=== PATIENT | female | born 1930 | race Caucasian/White ===

== ENCOUNTER 2018-01-15 07:01 | Emergency (ER) | payer MEDICARE, MEDICAID ==
[2018-01-15] MEDS ORDERED: Albuterol/Ipratropium 3.0-0.5 MG/3 ML Neb Soln NEB ONE (07:04)
[2018-01-15] MEDS ORDERED: Sodium Chloride 0.9% 10 ML Syringe FLUSH PRN (07:04)
--- NOTE | 2018-01-15 07:04 | EDM.PDOC ---
ED HPI GENERAL MEDICAL PROBLEM - General Chief Complaint: Respiratory Problem Stated Complaint: SOB AND HARD TO WAKE AMBULANCE Time Seen by Provider: 01/15/18 07:01 Source of Information: Reports: EMS, Family, Old Records, RN, RN Notes Reviewed History Limitations: Reports: Respiratory Distress - History of Present Illness INITIAL COMMENTS - FREE TEXT/NARRATIVE: Arrives by ambulance with report that pt's son could not wake her up this morning. Son reports pt got sick with cough and sore throat on or about January 07 , and slowly worsened since then. She called the clinic and they called in a Z- Chris a few days ago. This morning the pt's son was unable to wake her, and called 911. EMS reports that found the pt in resp. distress with O2 sats in 70' s. Pt is unable to provide any Hx. Pt's son states he wants to her to have "full medical treatment", but no intubation or life support. Onset: Gradual Duration: Constant, Getting Worse Location: Reports: Generalized Severity: Severe Improves with: Reports: None Worsens with: Reports: None Associated Symptoms: Reports: No Other Symptoms Treatments GRIEF COUNSELOR: Reports: Oxygen - Related Data Allergies Allergy/AdvReac Type Severity Reaction Status Date / Time No Known Allergies Allergy Verified 01/15/18 07:25 Home Meds: Home Meds Azithromycin [Zithromax] 250 mg PO DAILY 01/15/18 [History] Clorazepate Dipotassium [Tranxene T-Tab] 7.5 mg PO DAILY 01/15/18 [History] Gemfibrozil 600 mg PO DAILY 01/15/18 [History] Oxybutynin Chloride [Ditropan Xl] 10 mg PO DAILY 01/15/18 [History] Phenytoin 100 mg PO BID 01/15/18 [History] Valsartan 320 mg PO DAILY 01/15/18 [History] Past Medical History Neurological History: Reports: Seizure Endocrine/Metabolic History: Reports: Obesity/BMI 30+, Other (See Below) ( borderline DM) Social & Family History - Family History Family Medical History: Unobtainable - Tobacco Use Smoking Status *Q: Former Smoker Tobacco Use Within Last Twelve Months: Cigarettes - Alcohol Use Alcohol Use History: No - Living Situation & Occupation Living situation: Reports: , with Family (lives with son, in half-way) Occupation: Retired ED ROS GENERAL - Review of Systems Review Of Systems: Unable To Obtain ED EXAM, GENERAL - Physical Exam Exam: See Below Exam Limited By: Respiratory Distress General Appearance: Obtunded, Obese, Other (critically ill and toxic appearing) Eye Exam: Bilateral Eye: PERRL Nose: Normal Inspection, Normal Mucosa, No Blood Throat/Mouth: No Airway Compromise, Other (dry oral membranes) Head: Atraumatic, Normocephalic Neck: Normal Inspection Respiratory/Chest: Respiratory Distress, Decreased Breath Sounds, Crackles, Rales, Rhonchi (Rt lung field), Accessory Muscle Use, Other (tachypnic) Cardiovascular: Regular Rate, Rhythm, Tachycardia, Other (trace pedal edema) GI/Abdominal: Soft, Non-Tender, No Distention, Abnormal Bowel Sounds (hypoactive ). No: Guarding, Rigid, Rebound (Female) Exam: Normal External Exam Rectal (Female) Exam: Deferred Extremities: Pedal Edema (trace), Slow Capillary Refill Neurological: Confused, Disoriented Skin Exam: Warm, Dry, Pallor EKG INTERPRETATION EKG Date: 01/15/18 Time: 07:00 Rhythm: Other (SR) Rate (Beats/Min): 109 Riddle: Normal P-Wave: Present QRS: RBBB ST-T: Other (T-wave inversion V1-V4) QT: Normal Comparison: NA - No Prior EKG Course - Vital Signs Last Recorded V/S: Last Vital Signs Temp 35.7 C 01/15/18 07:00 Pulse 120 H 01/15/18 07:00 Resp 38 H 01/15/18 07:00 BP 121/53 L 01/15/18 07:00 Pulse Ox 74 L 01/15/18 07:00 - Orders/Labs/Meds Orders: Active Orders 24 hr Category Date Time Status BIPAP [RT BiPAP/CPAP] [RC] ASDIRECTED Care 01/15/18 08:22 Active Blood Glucose Check, Bedside [RC] ONETIME Care 01/15/18 07:05 Active EKG 12 Lead [EKG Documentation Completion] [RC] STAT Care 01/15/18 07:04 Active Peripheral IV Care [RC] . DIRECTED Care 01/15/18 07:05 Active RT Aerosol Therapy [RC] ASDIRECTED Care 01/15/18 07:04 Active RT Aerosol Therapy [RC] ASDIRECTED Care 01/15/18 07:24 Active Chest 1V Frontal [CR] Stat Exams 01/15/18 07:04 Taken CULTURE BLOOD [BC] Stat Lab 01/15/18 07:15 Received CULTURE BLOOD [BC] Stat Lab 01/15/18 07:19 Results DRUG SCREEN URINE BIORAD [URCHEM] Stat Lab 01/15/18 07:28 Ordered UA W/MICROSCOPIC [URIN] Stat Lab 01/15/18 07:28 Ordered Levofloxacin/Dextrose 5%-Water [Levaquin in D5W 750 MG/ Med 01/15/18 07:24 Active 150 ML] 750 mg Premix Bag 1 bag IV ONETIME Sodium Chloride 0.9% [Saline Flush] Med 01/15/18 07:04 Active 10 ml FLUSH ASDIRECTED PRN Blood Culture x2 Reflex Set [OM.PC] Stat Oth 01/15/18 07:05 Ordered Peripheral IV Insertion Adult [OM.PC] Stat Oth 01/15/18 07:04 Ordered Medication Orders Levofloxacin/Dextrose 750 mg/ (Premix) 150 mls @ 100 mls/hr IV ONETIME ONE Stop: 01/15/18 08:53 Last Admin: 01/15/18 07:41 Dose: 100 mls/hr Sodium Chloride (Saline Flush) 10 ml FLUSH ASDIRECTED PRN PRN Reason: Keep Vein Open Last Admin: 01/15/18 07:41 Dose: 10 ml Labs: Laboratory Tests 01/15/18 01/15/18 01/15/18 Range/Units 07:03 07:03 07:03 WBC 15.7 H (5.0-10.0) 10^3/uL RBC 3.74 L (4.2-5.4) 10^6/uL Hgb 11.1 L (12.0-16.0) g/dL Hct 35.9 L (37.0-47.0) % MCV 96.0 (80-100) fL MCH 29.7 (27.0-34.0) pg MCHC 30.9 L (33.0-35.0) g/dL Plt Count 439 (150-450) 10^3/uL Neut % (Auto) 75.5 H (42.2-75.2) % Lymph % (Auto) 15.6 L (20.5-50.1) % [place] % (Auto) 8.7 H (2-8) % Eos % (Auto) 0.1 L (1.0-3.0) % Baso % (Auto) 0.1 (0.0-1.0) % Add Manual Diff Yes Neutrophils % (Manual) 67 (42-75) % Band Neutrophils % 8 % Lymphocytes % (Manual) 12 L (20-50) % Atypical Lymphs % 2 % Monocytes % (Manual) 8 (2-8) % Metamyelocytes % 3 PT 15.8 H (9.0-12.0) SEC INR 1.6 H (0.9-1.2) APTT 26.3 (22.0-34.0) SEC ABG pH (7.35-7.45) ABG pCO2 (35-45) mmHg ABG pO2 (70-100) mmHg ABG HCO3 (22-26) mmol/L ABG O2 Saturation (95-100) % ABG Base Excess ((-2)-(+3)) mmol/L O2 Delivery Device Oxygen Flow Rate Sodium 140 (135-145) mmol/L Potassium 4.7 (3.6-5.0) mmol/L Chloride 100 L (101-111) mmol/L Carbon Dioxide 23.0 (21.0-31.0) mmol/L Anion Gap 21.7 BUN 64 H (7-18) mg/dL Creatinine 2.7 H (0.6-1.3) mg/dL Est Cr Clr Drug Dosing 14.01 mL/min Estimated GFR (MDRD) 17 BUN/Creatinine Ratio 23.70 Glucose 147 H (74-105) mg/dL Lactic Acid (0.5-2.2) mmol/L Calcium 8.6 (8.4-10.2) mg/dl Total Bilirubin 1.0 (0.2-1.0) mg/dL AST 64 H (10-42) IU/L ALT 22 (10-60) IU/L Alkaline Phosphatase 89 (42-121) IU/L Troponin I 0.36 H* (0.00-0.02) ng/ml B-Natriuretic Peptide 4360 H (0-100) pg/ml Total Protein 7.6 (6.7-8.2) g/dl Albumin 3.0 L (3.2-5.5) g/dl Globulin 4.6 Albumin/Globulin Ratio 0.65 Urine Color (YELLOW) Urine Appearance (CLEAR) Urine pH (5.0-9.0) Ur Specific [place] (1.005-1.030) Urine Protein (NEGATIVE) Urine Glucose (UA) (NEGATIVE) Urine Ketones (NEGATIVE) Urine Occult Blood (NEGATIVE) Urine Nitrite (NEGATIVE) Urine Bilirubin (NEGATIVE) Urine Urobilinogen (0.2-1.0) mg/dL Ur Leukocyte Esterase (NEGATIVE) Urine RBC /HPF Urine WBC (0-5/HPF) /HPF Ur Epithelial Cells /HPF Amorphous Sediment (0/HPF) /HPF Urine Bacteria (0-FEW/HPF) /HPF Hyaline Casts /LPF Urine Opiates Screen (NEGATIVE) Ur Oxycodone Screen (NEGATIVE) Urine Methadone Screen (NEGATIVE) Ur Barbiturates Screen (NEGATIVE) U Tricyclic Antidepress (NEGATIVE) Ur Phencyclidine Scrn (NEGATIVE) Ur Amphetamine Screen (NEGATIVE) U Methamphetamines Scrn (NEGATIVE) Urine MDMA Screen (NEGATIVE) U Benzodiazepines Scrn (NEGATIVE) Urine Cocaine Screen (NEGATIVE) U Marijuana (THC) Screen (NEGATIVE) 01/15/18 01/15/18 01/15/18 Range/Units 07:03 07:25 07:28 WBC (5.0-10.0) 10^3/uL RBC (4.2-5.4) 10^6/uL Hgb (12.0-16.0) g/dL Hct (37.0-47.0) % MCV (80-100) fL MCH (27.0-34.0) pg MCHC (33.0-35.0) g/dL Plt Count (150-450) 10^3/uL Neut % (Auto) (42.2-75.2) % Lymph % (Auto) (20.5-50.1) % [place] % (Auto) (2-8) % Eos % (Auto) (1.0-3.0) % Baso % (Auto) (0.0-1.0) % Add Manual Diff Neutrophils % (Manual) (42-75) % Band Neutrophils % % Lymphocytes % (Manual) (20-50) % Atypical Lymphs % % Monocytes % (Manual) (2-8) % Metamyelocytes % PT (9.0-12.0) SEC INR (0.9-1.2) APTT (22.0-34.0) SEC ABG pH 7.01 L* (7.35-7.45) ABG pCO2 106 H* (35-45) mmHg ABG pO2 170 H (70-100) mmHg ABG HCO3 25.5 (22-26) mmol/L ABG O2 Saturation 99 (95-100) % ABG Base Excess -8 L ((-2)-(+3)) mmol/L O2 Delivery Device Non rebr mask Oxygen Flow Rate 15 Sodium (135-145) mmol/L Potassium (3.6-5.0) mmol/L Chloride (101-111) mmol/L Carbon Dioxide (21.0-31.0) mmol/L Anion Gap BUN (7-18) mg/dL Creatinine (0.6-1.3) mg/dL Est Cr Clr Drug Dosing mL/min Estimated GFR (MDRD) BUN/Creatinine Ratio Glucose (74-105) mg/dL Lactic Acid 7.2 H (0.5-2.2) mmol/L Calcium (8.4-10.2) mg/dl Total Bilirubin (0.2-1.0) mg/dL AST (10-42) IU/L ALT (10-60) IU/L Alkaline Phosphatase (42-121) IU/L Troponin I (0.00-0.02) ng/ml B-Natriuretic Peptide (0-100) pg/ml Total Protein (6.7-8.2) g/dl Albumin (3.2-5.5) g/dl Globulin Albumin/Globulin Ratio Urine Color Dark yellow (YELLOW) Urine Appearance Slightly cloudy (CLEAR) Urine pH 5.0 (5.0-9.0) Ur Specific [place] 1.025 (1.005-1.030) Urine Protein 100 H (NEGATIVE) Urine Glucose (UA) Negative (NEGATIVE) Urine Ketones Trace H (NEGATIVE) Urine Occult Blood Negative (NEGATIVE) Urine Nitrite Negative (NEGATIVE) Urine Bilirubin Small H (NEGATIVE) Urine Urobilinogen 2.0 H (0.2-1.0) mg/dL Ur Leukocyte Esterase Negative (NEGATIVE) Urine RBC 0-5 /HPF Urine WBC 0-5 (0-5/HPF) /HPF Ur Epithelial Cells Many H /HPF Amorphous Sediment Many H (0/HPF) /HPF Urine Bacteria Moderate H (0-FEW/HPF) /HPF Hyaline Casts Many H /LPF Urine Opiates Screen (NEGATIVE) Ur Oxycodone Screen (NEGATIVE) Urine Methadone Screen (NEGATIVE) Ur Barbiturates Screen (NEGATIVE) U Tricyclic Antidepress (NEGATIVE) Ur Phencyclidine Scrn (NEGATIVE) Ur Amphetamine Screen (NEGATIVE) U Methamphetamines Scrn (NEGATIVE) Urine MDMA Screen (NEGATIVE) U Benzodiazepines Scrn (NEGATIVE) Urine Cocaine Screen (NEGATIVE) U Marijuana (THC) Screen (NEGATIVE) 01/15/18 Range/Units 07:28 WBC (5.0-10.0) 10^3/uL RBC (4.2-5.4) 10^6/uL Hgb (12.0-16.0) g/dL Hct (37.0-47.0) % MCV (80-100) fL MCH (27.0-34.0) pg MCHC (33.0-35.0) g/dL Plt Count (150-450) 10^3/uL Neut % (Auto) (42.2-75.2) % Lymph % (Auto) (20.5-50.1) % [place] % (Auto) (2-8) % Eos % (Auto) (1.0-3.0) % Baso % (Auto) (0.0-1.0) % Add Manual Diff Neutrophils % (Manual) (42-75) % Band Neutrophils % % Lymphocytes % (Manual) (20-50) % Atypical Lymphs % % Monocytes % (Manual) (2-8) % Metamyelocytes % PT (9.0-12.0) SEC INR (0.9-1.2) APTT (22.0-34.0) SEC ABG pH (7.35-7.45) ABG pCO2 (35-45) mmHg ABG pO2 (70-100) mmHg ABG HCO3 (22-26) mmol/L ABG O2 Saturation (95-100) % ABG Base Excess ((-2)-(+3)) mmol/L O2 Delivery Device Oxygen Flow Rate Sodium (135-145) mmol/L Potassium (3.6-5.0) mmol/L Chloride (101-111) mmol/L Carbon Dioxide (21.0-31.0) mmol/L Anion Gap BUN (7-18) mg/dL Creatinine (0.6-1.3) mg/dL Est Cr Clr Drug Dosing mL/min Estimated GFR (MDRD) BUN/Creatinine Ratio Glucose (74-105) mg/dL Lactic Acid (0.5-2.2) mmol/L Calcium (8.4-10.2) mg/dl Total Bilirubin (0.2-1.0) mg/dL AST (10-42) IU/L ALT (10-60) IU/L Alkaline Phosphatase (42-121) IU/L Troponin I (0.00-0.02) ng/ml B-Natriuretic Peptide (0-100) pg/ml Total Protein (6.7-8.2) g/dl Albumin (3.2-5.5) g/dl Globulin Albumin/Globulin Ratio Urine Color (YELLOW) Urine Appearance (CLEAR) Urine pH (5.0-9.0) Ur Specific [place] (1.005-1.030) Urine Protein (NEGATIVE) Urine Glucose (UA) (NEGATIVE) Urine Ketones (NEGATIVE) Urine Occult Blood (NEGATIVE) Urine Nitrite (NEGATIVE) Urine Bilirubin (NEGATIVE) Urine Urobilinogen (0.2-1.0) mg/dL Ur Leukocyte Esterase (NEGATIVE) Urine RBC /HPF Urine WBC (0-5/HPF) /HPF Ur Epithelial Cells /HPF Amorphous Sediment (0/HPF) /HPF Urine Bacteria (0-FEW/HPF) /HPF Hyaline Casts /LPF Urine Opiates Screen Negative (NEGATIVE) Ur Oxycodone Screen Negative (NEGATIVE) Urine Methadone Screen Negative (NEGATIVE) Ur Barbiturates Screen Positive H (NEGATIVE) U Tricyclic Antidepress Negative (NEGATIVE) Ur Phencyclidine Scrn Negative (NEGATIVE) Ur Amphetamine Screen Negative (NEGATIVE) U Methamphetamines Scrn Negative (NEGATIVE) Urine MDMA Screen Negative (NEGATIVE) U Benzodiazepines Scrn Positive H (NEGATIVE) Urine Cocaine Screen Negative (NEGATIVE) U Marijuana (THC) Screen Negative (NEGATIVE) Meds: Medications Generic Name Dose Route Start Last Admin Trade Name Freq PRN Reason Stop Dose Admin Levofloxacin/Dextrose 750 mg/ 150 mls @ 100 mls/hr 01/15/18 07:24 01/15/18 07 :41 Premix IV 01/15/18 08:53 100 mls/hr ONETIME ONE Administration Sodium Chloride 10 ml 01/15/18 07:04 01/15/18 07:41 Saline Flush FLUSH 10 ml ASDIRECTED PRN Administration Keep Vein Open Discontinued Medications Generic Name Dose Route Start Last Admin Trade Name Deshawn PRN Reason Stop Dose Admin Albuterol 10 mg 01/15/18 07:23 01/15/18 07:41 Proventil Neb Soln NEB 01/15/18 07:24 10 mg ONETIME ONE Administration Albuterol/Ipratropium 3 ml 01/15/18 07:04 01/15/18 07:10 Duoneb 3.0-0.5 Mg/3 Ml NEB 01/15/18 07:05 3 ml ONETIME ONE Administration Furosemide 20 mg 01/15/18 07:50 Lasix IVPUSH 01/15/18 07:51 NOW ONE Furosemide 40 mg 01/15/18 07:51 01/15/18 07:57 Lasix IVPUSH 01/15/18 07:52 40 mg NOW ONE Administration Sodium Chloride 1,000 mls @ 999 mls/hr 01/15/18 07:23 01/15/18 07:42 Normal Saline IV 01/15/18 08:23 999 mls/hr .BOLUS ONE Administration Lorazepam 1 mg 01/15/18 07:24 Ativan IVPUSH 01/15/18 07:25 ONETIME ONE Methylprednisolone Sodium Succinate 125 mg 01/15/18 07:23 01/15/18 07:42 Solu-Medrol IVPUSH 01/15/18 07:24 125 mg ONETIME ONE Administration - Radiology Interpretation Free Text/Narrative:: CXR: Rt middle lobe infiltrate, see Rad. report. - Re-Assessments/Exams Free Text/Narrative Re-Assessment/Exam: 01/15/18 08:00 Critically ill pt with poor prognosis. Discussed with pt's son, he wishes for pt to have full medical treatment but no intubation or life support. Pt's son wanted to have the pt admitted here for antibiotics and breathing treatments with the understanding that she is gravely ill. I asked Dr. Garcia to admit the pt, but he felt strongly that the should be transferred. After discussion with Dr. Garcia pt's son changed his mind and decided to transfer the pt to [facility] in . I explained to the son that the pt may not survive the transfer, but he wishes to proceed. Departure - Departure Time of Disposition: 08:35 Disposition: DC/Tfer to Acute Hospital 02 Condition: Critical Clinical Impression: Non-ST elevated myocardial infarction (non-STEMI), Acute kidney injury ( nontraumatic) Pneumonia Qualifiers: Pneumonia type: due to unspecified organism Laterality: right Lung location: middle lobe of lung Qualified Code(s): J18.1 - Lobar pneumonia, unspecified organism Sepsis Qualifiers: Sepsis type: sepsis due to unspecified organism Qualified Code(s): A41.9 - Sepsis, unspecified organism Acute CHF (congestive heart failure) Qualifiers: Heart failure type: unspecified Qualified Code(s): I50.9 - Heart failure, unspecified Acute respiratory failure Qualifiers: Respiratory failure complication: hypoxia and hypercapnia Qualified Code(s): J96.01 - Acute respiratory failure with hypoxia; J96.02 - Acute respiratory failure with hypercapnia - Discharge Information Referrals: Jasmeet Loza MD [Primary Care Provider] - Forms: ED Department Discharge, Interfacility Transfer EMTALA - My Orders Last 24 Hours: My Active Orders 01/15/18 07:04 EKG 12 Lead [EKG Documentation Completion] [RC] STAT RT Aerosol Therapy [RC] ASDIRECTED Chest 1V Frontal [CR] Stat Sodium Chloride 0.9% [Saline Flush] 10 ml FLUSH ASDIRECTED PRN Peripheral IV Insertion Adult [OM.PC] Stat 01/15/18 07:05 Blood Glucose Check, Bedside [RC] ONETIME Peripheral IV Care [RC] . DIRECTED Blood Culture x2 Reflex Set [OM.PC] Stat 01/15/18 07:15 CULTURE BLOOD [BC] Stat 01/15/18 07:19 CULTURE BLOOD [BC] Stat 01/15/18 07:24 RT Aerosol Therapy [RC] ASDIRECTED Levofloxacin/Dextrose 5%-Water [Levaquin in D5W 750 MG/150 ML] 750 mg Premix Bag 1 bag IV ONETIME 01/15/18 07:28 DRUG SCREEN URINE BIORAD [URCHEM] Stat UA W/MICROSCOPIC [URIN] Stat 01/15/18 08:22 BIPAP [RT BiPAP/CPAP] [RC] ASDIRECTED - Assessment/Plan Last 24 Hours: My Active Orders 01/15/18 07:04 EKG 12 Lead [EKG Documentation Completion] [RC] STAT RT Aerosol Therapy [RC] ASDIRECTED Chest 1V Frontal [CR] Stat Sodium Chloride 0.9% [Saline Flush] 10 ml FLUSH ASDIRECTED PRN Peripheral IV Insertion Adult [OM.PC] Stat 01/15/18 07:05 Blood Glucose Check, Bedside [RC] ONETIME Peripheral IV Care [RC] . DIRECTED Blood Culture x2 Reflex Set [OM.PC] Stat 01/15/18 07:15 CULTURE BLOOD [BC] Stat 01/15/18 07:19 CULTURE BLOOD [BC] Stat 01/15/18 07:24 RT Aerosol Therapy [RC] ASDIRECTED Levofloxacin/Dextrose 5%-Water [Levaquin in D5W 750 MG/150 ML] 750 mg Premix Bag 1 bag IV ONETIME 01/15/18 07:28 DRUG SCREEN URINE BIORAD [URCHEM] Stat UA W/MICROSCOPIC [URIN] Stat 01/15/18 08:22 BIPAP [RT BiPAP/CPAP] [RC] ASDIRECTED
[2018-01-15] MEDS ORDERED: methylPREDNISolone Sodium Succinate 125 MG/2 ML SDV IVPUSH ONE (07:23)
[2018-01-15] MEDS ORDERED: Albuterol 0.083% 2.5 MG/3 ML Neb Soln NEB ONE (07:23)
[2018-01-15] MEDS ORDERED: Sodium Chloride 0.9% 1,000 ML IV ONE (07:23)
[2018-01-15] MEDS ORDERED: LORazepam 2 MG/ML Syringe IVPUSH ONE (07:24)
[2018-01-15] MEDS ORDERED: Levofloxacin/Dextrose 5%-Water 750 MG in Premix Bag 1 BAG IV ONE (07:24)
[2018-01-15 07:32] LABS: BASE EXCESS ARTERIAL -8 mmol/L ((-2)-(+3)); BICARBONATE,ARTERIAL 25.5 mmol/L (22-26); O2 DELIVERY DEVICE NON REBR MASK; O2 SATURATION ARTERIAL 99 % (95-100); PO2 ARTERIAL 170 mmHg (70-100)
[2018-01-15 07:33] LABS: PCO2 ARTERIAL 106 mmHg (35-45)
[2018-01-15 07:34] LABS: O2 FLOW RATE 15
[2018-01-15 07:36] LABS: ANION GAP 21.7
[2018-01-15] MEDS ORDERED: Furosemide 40 MG/4 ML VIAL IVPUSH ONE ×2 (07:50→07:51)
--- NOTE | 2018-01-16 17:21 | EKG ---
01/15/2018 - ANN DONALDSON - TIME: 7:00 a.m. FINDINGS: As per my reading, sinus tachycardia at 109. MOD /[id number]
== END 2018-01-15 09:30 ==
LOC: DL.ED 07:01
DX: A41.9 Sepsis, unspecified organism (principal); I21.4 Non-ST elevation (NSTEMI) myocardial infarction; J96.01 Acute respiratory failure with hypoxia; J96.02 Acute respiratory failure with hypercapnia; I50.9 Heart failure, unspecified; J18.9 Pneumonia, unspecified organism; N17.9 Acute kidney failure, unspecified; Z79.899 Other long term (current) drug therapy; Z87.891 Personal history of nicotine dependence
CPT/HCPCS: 36415; 36600; 71045; 80053; 80305; 81001; 82803; 82962; 83605; 83880; 84484; 85025; 85610; 85730; 87040; 93005; 93010; 94640; 94660; 96365; 96375; 99285; J1940; J1956; J2930; J7030; J7050; J7620; 87077; 87186; J2060

== ENCOUNTER 2018-01-23 08:28 | Inpatient (IN) | payer MEDICARE, MEDICAID ==
[2018-01-23] MEDS ORDERED: Zolpidem 5 MG Tab PO PRN (15:06)
--- NOTE | 2018-01-23 15:37 | PCM.HP ---
H&P History of Present Illness - General Date of Service: 01/23/18 Admit Problem/Dx: Admission Diagnosis/Problem Admission Diagnosis/Problem Weakness Source of Information: Patient, Old Records - History of Present Illness Initial Comments - Free Text/Narative: The patient is an 87-year-old lady with a history of seizure disorder, dyslipidemia area The patient was found unresponsive was admitted to [facility]. She was treated for acute hypoxemic hypercapnic respiratory failure, acute CHF, acute renal failure, pneumonia. After the 8 days of hospital course the patient was found to be too weak to go home. Was transferred for further physical and occupational therapy. She is feeling well. Denies shortness of breath, chest pain. - Related Data Allergies/Adverse Reactions: Allergies Allergy/AdvReac Type Severity Reaction Status Date / Time No Known Allergies Allergy Verified 01/23/18 12:34 Home Medications: Home Meds Clorazepate Dipotassium [Tranxene T-Tab] 7.5 mg PO BID 01/15/18 [History] Gemfibrozil 600 mg PO BID 01/15/18 [History] Oxybutynin Chloride [Ditropan Xl] 10 mg PO DAILY 01/15/18 [History] Phenytoin 300 mg PO BEDTIME 01/15/18 [History] Valsartan 320 mg PO DAILY 01/15/18 [History] Amoxicillin/Clavulanate K [Augmentin 875-125 MG] 1 tab PO BID 01/23/18 [History] B2/Vit A,C & E/Lut/Zeaxanth/Mn [Icaps] 1 tab PO DAILY 01/23/18 [History] Bumetanide [Bumex] 2 mg PO DAILY 01/23/18 [History] Calcium Carbonate/Vitamin D3 [Calcium 600 + Vit D Tablet] 1 tab PO DAILY [History] Clorazepate [Clorazepate Dipotassium] 3.75 mg PO WITHLUNCH 01/23/18 [History] Doxycycline [Doxycycline Monohydrate] 100 mg PO BID 01/23/18 [History] Past Medical History HEENT History: Reports: Cataract, Impaired Vision Cardiovascular History: Reports: Heart Failure, Hypertension, Other (See Below) Other Cardiovascular History: dislipidemia Respiratory History: Reports: Pneumonia, Recurrent, SOB Genitourinary History: Reports: Acute Renal Failure, Urinary Incontinence [employer] 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: Musculoskeletal History: Reports: Arthritis Neurological History: Reports: Seizure, Other (See Below) Other Neuro History: Encephalopathy(01/15/18) Psychiatric History: Reports: Anxiety Endocrine/Metabolic History: Reports: Obesity/BMI 30+ - Past Surgical History HEENT Surgical History: Reports: Adenoidectomy, Cataract Surgery, Tonsillectomy Cardiovascular Surgical History: Reports: None Respiratory Surgical History: Reports: None Female Surgical History: Reports: None Endocrine Surgical History: Reports: None Neurological Surgical History: Reports: None Musculoskeletal Surgical History: Reports: None Social & Family History - Family History Family Medical History: Unobtainable - Tobacco Use Smoking Status *Q: Former Smoker Used Tobacco, but Quit: Yes Month/Year Tobacco Last Used: 03/12/60 - Caffeine Use Caffeine Use: Reports: Coffee - Recreational Drug Use Recreational Drug Use: No - Living Situation & Occupation Living situation: Reports: , with Family (lives with son, in shelter) Occupation: Retired H&P Review of Systems - Review of Systems: Review Of Systems: See Below General: Denies: Fever Pulmonary: Denies: Shortness of Breath Cardiovascular: Denies: Chest Pain Gastrointestinal: Denies: Abdominal Pain Psychiatric: Denies: Confusion Exam - Exam Exam: See Below - Vital Signs Vital Signs: Last Vital Signs Temp 36.6 C 01/23/18 13:47 Pulse 87 01/23/18 13:47 Resp 20 01/23/18 13:47 BP 150/70 H 01/23/18 13:47 Pulse Ox 93 L 01/23/18 13:47 Weight: 81.465 kg - Exam Quality Assessment: Supplemental Oxygen General: Alert Neck: Supple Lungs: Decreased Breath Sounds, Rhonchi (b/l) GI/Abdominal Exam: Normal Bowel Sounds, Soft, Non-Tender Extremities: No Pedal Edema Neuro Extensive - Mental Status: Alert, Oriented x3, Normal Mood/Affect Psychiatric: Alert, Normal Affect, Normal Mood - Patient Data Lab Results Last 24 hrs: Laboratory studies were reviewed from [facility] On January UN was 44, potassium 4.0, creatinine 0.9 - Problem List (1) Chronic diastolic CHF (congestive heart failure) SNOMED Code(s): 322438622, 468027076 ICD Code: I50.32 - CHRONIC DIASTOLIC (CONGESTIVE) HEART FAILURE Status: Acute Current Visit: Yes (2) Seizure disorder SNOMED Code(s): 904983748 ICD Code: G40.909 - EPILEPSY, UNSP, NOT INTRACTABLE, WITHOUT STATUS EPILEPTICUS Status: Acute Current Visit: Yes (3) Pneumonia SNOMED Code(s): 125356203 ICD Code: J18.9 - PNEUMONIA, UNSPECIFIED ORGANISM Status: Acute Current Visit: No Qualifiers: Pneumonia type: due to unspecified organism Laterality: right Lung location: middle lobe of lung Qualified Code(s): J18.1 - Lobar pneumonia, unspecified organism Problem List Initiated/Reviewed/Updated: Yes Orders Last 24hrs: Active Orders 24 hr Category Date Time Status Patient Status [ADT] Routine ADT 01/23/18 15:06 Active Oxygen Therapy [RC] PRN Care 01/23/18 15:06 Active Up With Assistance [RC] ASDIRECTED Care 01/23/18 15:06 Active VTE/DVT Education [RC] PER UNIT ROUTINE Care 01/23/18 15:06 Active Vital Signs [RC] QSHIFT Care 01/23/18 15:06 Active OT Evaluation and Treatment [CONS] Routine Cons 01/23/18 15:08 Active PT Evaluation and Treatment [CONS] Routine Cons 01/23/18 15:08 Active Regular Diet [DIET] Diet 01/23/18 Dinner Active Amoxicillin/Clavulanate K [Augmentin 875 MG/125 MG] Med 01/23/18 21:00 Ordered 1 tab PO BID Bumetanide [Bumex] Med 01/24/18 09:00 Ordered 2 mg PO DAILY Clorazepate Dipotassium [Tranxene T-Tab] Med 01/23/18 21:00 Ordered 7.5 mg PO BID Clorazepate [Clorazepate Dipotassium] Med 01/24/18 12:00 Ordered 3.75 mg PO WITHLUNCH Docusate Sodium/Sennosides [Senna Plus] Med 01/23/18 21:00 Ordered 1 tab PO BEDTIME Doxycycline [Vibramycin] Med 01/23/18 21:00 Ordered 100 mg PO BID Gemfibrozil [Lopid] Med 01/23/18 21:00 Ordered 600 mg PO BID Heparin Sodium Med 01/23/18 22:00 Ordered 5,000 units SUBCUT Q8HR Oxybutynin Chloride [Ditropan Xl] Med 01/24/18 09:00 Ordered 10 mg PO DAILY Phenytoin Med 01/23/18 21:00 Ordered 300 mg PO BEDTIME Valsartan [Valsartan] Med 01/24/18 09:00 Ordered 320 mg PO DAILY Zolpidem [Ambien] Med 01/23/18 15:06 Ordered 5 mg PO BEDTIME PRN Resuscitation Status Routine Resus Stat 01/23/18 15:06 Ordered Medication Orders Amoxicillin/Clavulanate Potassium (Augmentin 875 Mg/125 Mg) 1 tab PO BID [facility] Stop: 01/30/18 21:01 Bumetanide (Bumex) 2 mg PO DAILY [facility] Gemfibrozil (Lopid) 600 mg PO BID [facility] Heparin Sodium (Porcine) (Heparin Sodium) 5,000 units SUBCUT Q8HR [facility] Non-Formulary Medication (Clorazepate Dipotassium [Tranxene T-Tab]) 7.5 mg PO BID [facility] Non-Formulary Medication (Clorazepate [Clorazepate Dipotassium]) 3.75 mg PO WITHLUNCH [facility] Non-Formulary Medication (Doxycycline [Vibramycin]) 100 mg PO BID [facility] Stop: 01/30/18 21:01 Non-Formulary Medication (Oxybutynin Chloride [Ditropan Xl]) 10 mg PO DAILY [facility] Non-Formulary Medication (Valsartan [Valsartan]) 320 mg PO DAILY [facility] Phenytoin Sodium (Phenytoin) 300 mg PO BEDTIME [facility] Senna/Docusate Sodium (Senna Plus) 1 tab PO BEDTIME [facility] Zolpidem Tartrate (Ambien) 5 mg PO BEDTIME PRN PRN Reason: Sleep Assessment/Plan Comment:: 87-year-old lady with a history of seizure disorder, diastolic congestive heart failure. Transferred after acute hospital care for further physical and occupational therapy We will order physical and occupational therapy evaluation and treatment Acute hypercapnic hypoxemic respiratory failure Continue oxygen supplement as needed Monitor for signs of hypercapnia Acute pneumonia Finish antibiotic treatment with Augmentin and doxycycline History of seizure disorder Treat with Dilantin Chronic diastolic congestive heart failure Continue Bumex Hypertension Treat with Diovan DVT prophylaxis with subcutaneous tetanus heparin
[2018-01-23] MEDS: Gemfibrozil 600 MG Tab PO SCH (17:17)
[2018-01-23] MEDS: CLAVULANATE K PO SCH (20:34)
[2018-01-23] MEDS: DOXYCYCLINE 100 MG PO SCH (20:34)
[2018-01-23] MEDS: AMOXICILLIN PO SCH (20:34)
[2018-01-23] MEDS: CLORAZEPATE 7.5 MG PO SCH (20:35)
[2018-01-23] MEDS: Phenytoin 100 MG Cap.ER PO SCH (20:36)
[2018-01-23] MEDS: Heparin Sodium 5,000 Units/ML Vial SUBCUT SCH (22:24)
[2018-01-24] MEDS: Heparin Sodium 5,000 Units/ML Vial SUBCUT SCH ×3 (06:07→21:54)
[2018-01-24] MEDS: Gemfibrozil 600 MG Tab PO SCH ×2 (06:07→18:47)
[2018-01-24] MEDS: CLAVULANATE K PO SCH ×2 (09:40→20:40)
[2018-01-24] MEDS: AMOXICILLIN PO SCH ×2 (09:40→20:40)
[2018-01-24] MEDS: DOXYCYCLINE 100 MG PO SCH ×2 (09:41→20:40)
[2018-01-24] MEDS: BUMETANIDE 1 MG PO SCH (09:45)
[2018-01-24] MEDS: Oxybutynin 5 MG Tab.ER PO SCH (09:46)
[2018-01-24] MEDS: CLORAZEPATE 7.5 MG PO SCH ×2 (09:47→20:38)
[2018-01-24] MEDS: CLORAZEPATE 3.75 MG PO SCH (12:07)
[2018-01-24] MEDS: Phenytoin 100 MG Cap.ER PO SCH (20:44)
[2018-01-25] MEDS: Heparin Sodium 5,000 Units/ML Vial SUBCUT SCH ×3 (05:24→21:51)
[2018-01-25] MEDS: Gemfibrozil 600 MG Tab PO SCH ×2 (05:24→17:54)
[2018-01-25] MEDS: AMOXICILLIN PO SCH ×2 (09:10→21:45)
[2018-01-25] MEDS: CLAVULANATE K PO SCH ×2 (09:10→21:45)
[2018-01-25] MEDS: BUMETANIDE 1 MG PO SCH (09:11)
[2018-01-25] MEDS: CLORAZEPATE 7.5 MG PO SCH ×2 (09:12→21:49)
[2018-01-25] MEDS: Oxybutynin 5 MG Tab.ER PO SCH (09:16)
[2018-01-25] MEDS: DOXYCYCLINE 100 MG PO SCH ×2 (09:17→21:45)
[2018-01-25] MEDS: CLORAZEPATE 3.75 MG PO SCH (13:18)
[2018-01-25] MEDS ORDERED: Sodium Chloride 0.65% Nasal Spray 45 ML Bottle NAS PRN (16:23)
[2018-01-25] MEDS ORDERED: Benzocaine/Cetylpyridinium/Menthol Lozenge MUCMEM PRN (16:23)
[2018-01-25] MEDS: Phenytoin 100 MG Cap.ER PO SCH (21:46)
[2018-01-26] MEDS: Gemfibrozil 600 MG Tab PO SCH ×2 (05:24→16:38)
[2018-01-26] MEDS: Heparin Sodium 5,000 Units/ML Vial SUBCUT SCH ×3 (05:24→21:20)
[2018-01-26] MEDS: DOXYCYCLINE 100 MG PO SCH ×2 (10:00→21:19)
[2018-01-26] MEDS: AMOXICILLIN PO SCH ×2 (10:01→21:17)
[2018-01-26] MEDS: CLAVULANATE K PO SCH ×2 (10:01→21:17)
[2018-01-26] MEDS: Oxybutynin 5 MG Tab.ER PO SCH (10:02)
[2018-01-26] MEDS: CLORAZEPATE 3.75 MG PO SCH (12:17)
[2018-01-26] MEDS: BUMETANIDE 1 MG PO SCH ×2 (12:17→12:27)
[2018-01-26] MEDS: CLORAZEPATE 7.5 MG PO SCH ×2 (13:40→21:32)
[2018-01-26] MEDS: Phenytoin 100 MG Cap.ER PO SCH (21:19)
[2018-01-27] MEDS: Gemfibrozil 600 MG Tab PO SCH ×2 (06:10→16:56)
[2018-01-27] MEDS: Heparin Sodium 5,000 Units/ML Vial SUBCUT SCH ×3 (06:11→22:09)
[2018-01-27] MEDS: CLORAZEPATE 7.5 MG PO SCH ×2 (10:15→22:10)
[2018-01-27] MEDS: AMOXICILLIN PO SCH ×2 (10:16→22:09)
[2018-01-27] MEDS: CLAVULANATE K PO SCH ×2 (10:16→22:09)
[2018-01-27] MEDS: BUMETANIDE 1 MG PO SCH (10:17)
[2018-01-27] MEDS: DOXYCYCLINE 100 MG PO SCH ×2 (10:17→22:10)
[2018-01-27] MEDS: Oxybutynin 5 MG Tab.ER PO SCH (10:18)
[2018-01-27] MEDS ORDERED: Mineral Oil/Petrolatum/Phenylephrine/Shark Liver Oil Oint 57 GM Tube RECTAL PRN (11:37)
[2018-01-27] MEDS: CLORAZEPATE 3.75 MG PO SCH (13:18)
[2018-01-27] MEDS: Phenytoin 100 MG Cap.ER PO SCH (22:17)
[2018-01-28] MEDS: Gemfibrozil 600 MG Tab PO SCH ×2 (06:22→17:43)
[2018-01-28] MEDS: Heparin Sodium 5,000 Units/ML Vial SUBCUT SCH ×3 (06:22→21:59)
[2018-01-28] MEDS: Oxybutynin 5 MG Tab.ER PO SCH (09:37)
[2018-01-28] MEDS: CLORAZEPATE 7.5 MG PO SCH ×2 (09:37→21:57)
[2018-01-28] MEDS: BUMETANIDE 1 MG PO SCH (09:39)
[2018-01-28] MEDS: AMOXICILLIN PO SCH ×2 (09:41→21:57)
[2018-01-28] MEDS: CLAVULANATE K PO SCH ×2 (09:41→21:57)
[2018-01-28] MEDS: DOXYCYCLINE 100 MG PO SCH ×2 (09:42→21:58)
[2018-01-28] MEDS: CLORAZEPATE 3.75 MG PO SCH (13:01)
[2018-01-28] MEDS: Phenytoin 100 MG Cap.ER PO SCH (21:58)
[2018-01-29] MEDS: Heparin Sodium 5,000 Units/ML Vial SUBCUT SCH (06:16)
[2018-01-29] MEDS: Gemfibrozil 600 MG Tab PO SCH (06:16)
[2018-01-29] MEDS: CLAVULANATE K PO SCH (09:36)
[2018-01-29] MEDS: BUMETANIDE 1 MG PO SCH (09:36)
[2018-01-29] MEDS: AMOXICILLIN PO SCH (09:36)
[2018-01-29] MEDS: DOXYCYCLINE 100 MG PO SCH (09:36)
[2018-01-29] MEDS: Oxybutynin 5 MG Tab.ER PO SCH (09:37)
[2018-01-29] MEDS: CLORAZEPATE 7.5 MG PO SCH (09:38)
== END 2018-01-29 11:40 | DRG 947 ==
LOC: UNDOADMIN 13:40 → DL.MS 13:40
PROVIDERS: ADMIT Internal Medicine; ATTEND Internal Medicine
DX: R53.1 Weakness (principal); J18.9 Pneumonia, unspecified organism; I50.32 Chronic diastolic (congestive) heart failure; I11.0 Hypertensive heart disease with heart failure; E78.5 Hyperlipidemia, unspecified; G40.909 Epilepsy, unspecified, not intractable, without status epilepticus; E66.9 Obesity, unspecified; Z68.32 Body mass index [BMI] 32.0-32.9, adult; Z87.01 Personal history of pneumonia (recurrent); Z79.899 Other long term (current) drug therapy; Z87.891 Personal history of nicotine dependence
CPT/HCPCS: 36415; 80048; 82565; 84520; 85014; 85018; 85027; 92610-GN; 97110-GO; 97116-GP; 97162-GP; 97166-GO; A9270-GY; J1644

== ENCOUNTER 2018-02-08 18:43 | Emergency (ER) | payer MEDICARE, MEDICAID ==
[2018-02-08] MEDS ORDERED: Albuterol 0.083% 2.5 MG/3 ML Neb Soln NEB ONE (19:56)
--- NOTE | 2018-02-08 19:56 | EDM.PDOC ---
ED HPI GENERAL MEDICAL PROBLEM - General Chief Complaint: Respiratory Problem Stated Complaint: COUGH Time Seen by Provider: 02/08/18 19:07 Source of Information: Reports: Patient, Family, RN, RN Notes Reviewed History Limitations: Reports: No Limitations - History of Present Illness INITIAL COMMENTS - FREE TEXT/NARRATIVE: Pt to ER with c/o chest pains/ cough, and trouble catching her breath. Family states the patient choked on her oral pills this morning at [facility]. She states she has had small amount of vomiting with coughing and some nausea. Denies fever or chills. Onset: Today, Sudden - Related Data Allergies Allergy/AdvReac Type Severity Reaction Status Date / Time No Known Allergies Allergy Verified 01/23/18 12:34 Home Meds: Home Meds Clorazepate Dipotassium [Tranxene T-Tab] 7.5 mg PO BID 01/15/18 [History] Gemfibrozil 600 mg PO BID 01/15/18 [History] Oxybutynin Chloride [Ditropan Xl] 10 mg PO DAILY 01/15/18 [History] Phenytoin 300 mg PO BEDTIME 01/15/18 [History] B2/Vit A,C & E/Lut/Zeaxanth/Mn [Icaps] 1 tab PO DAILY 01/23/18 [History] Bumetanide [Bumex] 2 mg PO DAILY 01/23/18 [History] Calcium Carbonate/Vitamin D3 [Calcium 600 + Vit D Tablet] 1 tab PO DAILY [History] Clorazepate [Clorazepate Dipotassium] 3.75 mg PO WITHLUNCH 01/23/18 [History] Sennosides/Docusate Sodium [Senna-S] 1 tab PO BEDTIME 01/29/18 [History] Valsartan 160 mg PO DAILY 01/29/18 [History] Past Medical History HEENT History: Reports: Cataract, Impaired Vision Cardiovascular History: Reports: Heart Failure, Hypertension, Other (See Below) Other Cardiovascular History: dislipidemia Respiratory History: Reports: Pneumonia, Recurrent, SOB Genitourinary History: Reports: Acute Renal Failure, Urinary Incontinence 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: Musculoskeletal History: Reports: Arthritis Neurological History: Reports: Seizure, Other (See Below) Other Neuro History: Encephalopathy(01/15/18) Psychiatric History: Reports: Anxiety Endocrine/Metabolic History: Reports: Obesity/BMI 30+ - Past Surgical History HEENT Surgical History: Reports: Adenoidectomy, Cataract Surgery, Tonsillectomy Cardiovascular Surgical History: Reports: None Respiratory Surgical History: Reports: None Female Surgical History: Reports: None Endocrine Surgical History: Reports: None Neurological Surgical History: Reports: None Musculoskeletal Surgical History: Reports: None Social & Family History - Family History Family Medical History: Unobtainable - Tobacco Use Smoking Status *Q: Never Smoker Second Hand Smoke Exposure: No - Caffeine Use Caffeine Use: Reports: Coffee - Recreational Drug Use Recreational Drug Use: No - Living Situation & Occupation Living situation: Reports: , with Family (lives with son, in prison) Occupation: Retired ED ROS GENERAL - Review of Systems Review Of Systems: ROS reveals no pertinent complaints other than HPI. ED EXAM, GENERAL - Physical Exam Exam: See Below Exam Limited By: No Limitations General Appearance: Alert, WD/WN, Mild Distress Eye Exam: Bilateral Eye: EOMI, Normal Inspection Ears: Normal External Exam, Hearing Grossly Normal Nose: Normal Inspection Throat/Mouth: Normal Inspection, Normal Voice, No Airway Compromise Head: Atraumatic, Normocephalic Neck: Normal Inspection, Supple, Non-Tender, Full Range of Motion Respiratory/Chest: Decreased Breath Sounds, Crackles (left upper lobe/base), Other (Moist cough) Cardiovascular: Normal Peripheral Pulses, Regular Rate, Rhythm Peripheral Pulses: 1+: Dorsalis Pedis (L), Dorsalis Pedis (R), 2+: Radial (L), Radial (R) GI/Abdominal: Normal Bowel Sounds, Soft, Non-Tender (Female) Exam: Deferred Rectal (Female) Exam: Deferred Back Exam: Normal Inspection, Decreased Range of Motion Extremities: Normal Inspection, Pedal Edema (+1-2), Limited Range of Motion Neurological: Alert, Oriented, Normal Cognition Psychiatric: Normal Affect, Normal Mood Skin Exam: Warm, Dry, Intact, Normal Color, No Rash Lymphatic: No Adenopathy Course - Vital Signs Last Recorded V/S: Last Vital Signs Temp 99 F 02/08/18 18:43 Pulse 81 02/08/18 18:43 Resp 20 02/08/18 18:43 BP 161/80 H 02/08/18 18:43 Pulse Ox 92 L 02/08/18 18:43 - Orders/Labs/Meds Orders: Active Orders 24 hr Category Date Time Status RT Aerosol Therapy [RC] ASDIRECTED Care 02/08/18 19:56 Active Labs: Laboratory Tests 02/08/18 02/08/18 Range/Units 19:41 19:41 WBC 6.2 (5.0-10.0) 10^3/uL RBC 3.68 L (4.2-5.4) 10^6/uL Hgb 10.9 L (12.0-16.0) g/dL Hct 34.8 L (37.0-47.0) % MCV 94.6 (80-100) fL MCH 29.6 (27.0-34.0) pg MCHC 31.3 L (33.0-35.0) g/dL Plt Count 271 (150-450) 10^3/uL Neut % (Auto) 65.9 (42.2-75.2) % Lymph % (Auto) 20.6 (20.5-50.1) % [place] % (Auto) 8.7 H (2-8) % Eos % (Auto) 4.5 H (1.0-3.0) % Baso % (Auto) 0.3 (0.0-1.0) % Sodium 134 L (135-145) mmol/L Potassium 4.5 (3.6-5.0) mmol/L Chloride 98 L (101-111) mmol/L Carbon Dioxide 25.0 (21.0-31.0) mmol/L Anion Gap 15.5 BUN 19 H D (7-18) mg/dL Creatinine 0.9 (0.6-1.3) mg/dL Est Cr Clr Drug Dosing 34.17 mL/min Estimated GFR (MDRD) 59 BUN/Creatinine Ratio 21.11 Glucose TNP Calcium 8.8 (8.4-10.2) mg/dl Total Bilirubin 0.5 (0.2-1.0) mg/dL AST 21 (10-42) IU/L ALT 13 (10-60) IU/L Alkaline Phosphatase 141 H (42-121) IU/L Total Protein 7.4 (6.7-8.2) g/dl Albumin 3.1 L (3.2-5.5) g/dl Globulin 4.3 Albumin/Globulin Ratio 0.72 Meds: Medications Discontinued Medications Generic Name Dose Route Start Last Admin Trade Name Freq PRN Reason Stop Dose Admin Albuterol 2.5 mg 02/08/18 19:56 02/08/18 20:13 Proventil Neb Soln NEB 02/08/18 19:57 2.5 mg ONETIME ONE Administration Levofloxacin 500 mg 02/08/18 20:40 02/08/18 20:48 Levaquin PO 02/08/18 20:41 500 mg ONETIME ONE Administration - Radiology Interpretation Free Text/Narrative:: Chest xray: IMPRESSION: No acute findings. Thank you for allowing us to participate in the care of your patient. Dictated and Authenticated by: John Nassar MD 02/08/2018 7:44 PM Central Time ([place] & [place]) See rad report Departure - Departure Time of Disposition: 20:25 Disposition: Home, Self-Care 01 Condition: Fair Clinical Impression: Aspiration into respiratory tract Qualifiers: Encounter type: initial encounter Qualified Code(s): T17.908A - Unspecified foreign body in respiratory tract, part unspecified causing other injury, initial encounter - Discharge Information Instructions: Shortness of Breath, Adult, [id number], Aspiration Precautions , Adult, Aspiration Pneumonia Referrals: Jasmeet Loza MD [Primary Care Provider] - Forms: ED Department Discharge Additional Instructions: RX: Levaquin Follow up with your primary care facility tomorrow for a swallow eval. Small amounts of food and drink. Swallow carefully. - My Orders Last 24 Hours: My Active Orders 02/08/18 19:56 RT Aerosol Therapy [RC] ASDIRECTED - Assessment/Plan Last 24 Hours: My Active Orders 02/08/18 19:56 RT Aerosol Therapy [RC] ASDIRECTED
[2018-02-08 20:10] LABS: ANION GAP 15.5; CHLORIDE,CL 98 mmol/L (101-111); SODIUM,NA 134 mmol/L (135-145)
[2018-02-08] MEDS ORDERED: Levofloxacin 500 MG Tab PO ONE (20:40)
== END 2018-02-08 20:50 | disposition home or self-care (01) ==
LOC: DL.ED 18:43
DX: T17.908A Unspecified foreign body in respiratory tract, part unspecified causing other injury, initial encounter (principal); I11.0 Hypertensive heart disease with heart failure; I50.9 Heart failure, unspecified; F41.9 Anxiety disorder, unspecified; Z79.899 Other long term (current) drug therapy
CPT/HCPCS: 36415; 71046; 80053; 85025; 94640; 99283; 99284; A9270; J7620